=== PATIENT | female | born 1995 | race Hispanic/Latino ===

== ENCOUNTER → 2019-12-28 | Outpatient (CLI) | payer OTHER ==
--- NOTE | 2019-12-28 08:11 | REP ---
INDICATION: RIGHT UPPER QUADRANT PAIN COMPARISON: None. TECHNIQUE: Real time yates scale ultrasound examination using curved array transducer. FINDINGS: Liver demonstrates increased parenchymal echotexture suggesting fatty infiltration without focal hepatic lesion. Pancreas is incompletely evaluated due to interposed bowel gas. The gallbladder is normal and without gallstones, wall thickening, or pericholecystic fluid. No biliary ductal dilatation is appreciated and the common bile duct measures 4.6 mm diameter. Right kidney is normal in reniform shape without hydronephrosis and measures 13.1 x 5.3 x 4.9 cm. No ascites in the visualized right upper quadrant. IMPRESSION: Hepatosteatosis <Electronically signed by Favian Vernon > 12/28/19 0851
[2019-12-28 08:43] LABS: BASO # 0.1 10^3/uL (0.0-0.2); BASO % 1.2 % (0.0-1.0); EOS # 0.3 10^3/uL (0.0-0.5); EOS % 4.9 % (0.0-3.0); HEMATOCRIT 42.3 % (36.0-47.0); HEMOGLOBIN 14.1 g/dl (12.0-15.5); LYMPH # 2.7 10^3/uL (1.5-5.0); LYMPH % 38.6 % (24.0-44.0); MEAN CORPUSCULAR HEMOGLOBIN 30.2 pg (27.0-33.0); MEAN CORPUSCULAR HGB CONC 33.3 g/dl (32.0-36.5); MEAN CORPUSCULAR VOLUME 90.6 fl (80.0-96.0); MONO # 0.6 10^3/uL (0.0-0.8); MONO % 9.3 % (0.0-5.0); NEUTROPHILS # 3.1 10^3/uL (1.5-8.5); NEUTROPHILS % 45.6 % (36.0-66.0); PLATELET COUNT, AUTOMATED 337 10^3/uL (150-450); RED BLOOD COUNT 4.67 10^6/uL (4.00-5.40); WHITE BLOOD COUNT 6.9 10^3/uL (4.0-10.0)
[2019-12-28 08:47] LABS: HEMOGLOBIN A1c 5.2 %
[2019-12-28 08:59] LABS: ALBUMIN 3.7 GM/DL (3.2-5.2); ALT/SGPT 107 U/L (12-78); BILIRUBIN,TOTAL 0.4 MG/DL (0.2-1.0); BLOOD UREA NITROGEN 9 MG/DL (7-18); CALCIUM LEVEL 8.8 MG/DL (8.5-10.1); CARBON DIOXIDE LEVEL 25 MEQ/L (21-32); CHLORIDE LEVEL 106 MEQ/L (98-107); CREATININE FOR GFR 0.57 MG/DL (0.55-1.30); FREE T4 0.93 NG/DL (0.76-1.46); GLOMERULAR FILTRATION RATE > 60.0 (>60); GLUCOSE, FASTING 93 MG/DL (70-100); SODIUM LEVEL 139 MEQ/L (136-145); TOTAL PROTEIN 7.4 GM/DL (6.4-8.2)
[2019-12-28 11:52] LABS: TOTAL 25(OH) VITAMIN D 16.6 NG/ML (30.0-100.0)
== END ==
LOC: M RAD 07:29
PROVIDERS: ATTEND Physician Assistant
DX: R10.11 Right upper quadrant pain (principal); Z13.29 Encounter for screening for other suspected endocrine disorder

== ENCOUNTER 2020-03-18 08:31 | Emergency (ER) | payer OTHER ==
[~2020-03-18] VITALS: Ht 165.1 cm; Wt 110.0 kg
--- OUTSIDE RECORDS SUMMARY | 2020-03-18 08:36 | CCD | Continuity of Care Document ---
Author Jannette Orr DPM Organization Unknown Address [address] [place] [address], [address] [place] [address] Phone [phone] Care Team Providers Care Group Leader Name Role Phone Leatha ADAM, Jess JIANGM [phone] Problems Active Problems Provider Date Pain in limb Jaime Macdonald DPM Onset: 03/08/2020 Ingrowing nail Jaime Macdonald DPM Onset: 03/08/2020 Social History Type Date Description Comments Sex Unknown ETOH Use Rarely consumes alcohol Tobacco Use Start: Unknown Patient has never smoked Allergies, Adverse Reactions, Alerts Active Allergies Reaction Severity Comments Date Coconut 02/19/2020 Promethazine 02/19/2020 Medications Active Medications SIG Qnty Indications Ordering Provide r Date Egdrmgut-Vbmqxowsg-ED 1% Solution apply one drop to base of nail after betadine soaks as directed 10units Jaime Macdonald DPM 03/04/2020 Zoloft Unknown Immunizations Description No Information Available Vital Signs Date Vital Result Comment 03/04/2020 2:03pm Height 64.9 inches 5'4.90" Weight 239.00 lb BP Systolic 118 mmHg BP Diastolic 80 mmHg Heart Rate 106 /min BMI (Body Mass Index) 39.9 kg/m2 02/19/2020 2:25pm Height 64.9 inches 5'4.90" Weight 239.00 lb BP Systolic 118 mmHg BP Diastolic 80 mmHg Heart Rate 106 /min BMI (Body Mass Index) 39.9 kg/m2 Results Description No Information Available Procedures Date Code Description Status 03/04/2020 04000 Excise Nail Bed & Matrix Complet ed Medical Devices Description No Information Available Encounters Type Date Location Provider Dx Diagnosis Office Visit 03/04/2020 1:00p [facility] Jaime Macdonald DPM M79.675 Pain in left toe(s) L60.0 Ingrowing nail Assessments Date Code Description Provider 03/04/2020 M79.675 Pain in left toe(s) Jaime gabriel DPM 03/04/2020 L60.0 Ingrowing nail Jaime Macdonald DPM Plan of Treatment No Information Available Functional Status Description No Information Available Mental Status Description No Information Available Referrals Description No Information Available
--- OUTSIDE RECORDS SUMMARY | 2020-03-18 08:36 | CCD | Continuity of Care Document ---
Author Jannette Orr DPM Organization Unknown Address [address] [place] [address], [facility] [address] [place] [address] Phone [phone] Care Team Providers Care Food Service Hotel Runner Name Role Phone Leatha ADAM, Jess JIANGM [phone] Problems Description No Information Available Social History Type Date Description Comments Sex Unknown ETOH Use Rarely consumes alcohol Tobacco Use Start: Unknown Patient has never smoked Allergies, Adverse Reactions, Alerts Active Allergies Reaction Severity Comments Date Coconut 02/19/2020 Promethazine 02/19/2020 Medications Active Medications SIG Qnty Indications Ordering Provide r Date Dbufcovz-Fplvfhqxh-KX 1% Solution apply one drop to base [...] Available Procedures Date Code Description Status 03/04/2020 08051 Excise Nail Bed & Matrix Complet ed Medical Devices Description No Information Available Encounters Type Date Location Provider Dx Diagnosis Office Visit 03/04/2020 1:00p [place] [facility] Jaime Macdonald DPM M79.675 Pain in left toe(s) L60.0 Ingrowing nail Assessments Date Code Description Provider 03/04/2020 M79.675 Pain in left toe(s) Jaime gabriel DPM 03/04/2020 L60.0 Ingrowing nail Jaime Macdonald DPM Plan of Treatment Future Appointment(s):* 03/11/2020 2:30 pm - Jaime [facility] DPM at [facility] Functional Status Description No Information Available Mental Status Description No Information Available Referrals Description No Information Available
--- OUTSIDE RECORDS SUMMARY | 2020-03-18 08:36 | CCD | Continuity of Care Document ---
Author Author Jannette LEON PA Organization [place] [address] Phone [phone] Care Team Providers Care Poker Prop Player Name Role Phone Jess Zhang D.O. AUTM Problems Active Problems Provider Date Obesity KARI Gallegos Onset: 12/26/2019 Mild recurrent major depression KARI Gallegos Onset: 1 02/24/2019 Social History Type Date Description Comments Sex Unknown ETOH Use Currently consumes alcohol 1x mo nth Tobacco Use Start: Unknown Patient has never smoked Recreational Drug Use Denies Drug Use Exercise Type/Frequency Walks daily Sun Exposure Uses sunscreen Seat Belt/Car Seat Always uses seat belt Allergies, Adverse Reactions, Alerts Active Allergies Reaction Severity Comments Date Coconut 12/14/2019 Promethazine 12/14/2019 Medications Active Medications SIG Qnty Indications Ordering Provide r Date Zoloft 50mg Tablets 3 by mouth every day 270tabs Jess Zhang D.O. Immunizations CPT Code Status Date Vaccine Lot # [id number] Given 12/26/2019 Influenza Virus Vaccine, Quadrivalent, Split, Preservative Free [id number] Vital Signs Date Vital Result Comment 12/26/2019 11:00am BP Systolic 118 mmHg BP Diastolic 80 mmHg Height 64.9 inches 5'4.90" Weight 239.00 lb BMI (Body Mass Index) 39.9 kg/m2 Heart Rate 106 /min Respiratory Rate 16 /min Body Temperature 98.2 F O2 % BldC Oximetry 98 % [place] Body Weight 120 lb Results Description No Information Available Procedures Description No Information Available Medical Devices Description No Information Available Encounters Type Date Location Provider Dx Diagnosis Office Visit 12/26/2019 11:00a [facility] KARI Gallegos F33.0 Major depressive disorder, r ecurrent, mild E66.9 Obesity, unspecified R10.11 Right upper quadrant pain R10.2 Pelvic and perineal pain Z79.899 Other lobsterman (current) dr ug therapy L60.0 Ingrowing nail Z13.29 Encounter for screening for oth suspected endocrine disorder Z23 Encounter for immunization Z68.39 Body mass index [BMI] 39.0-3 9.9, adult Assessments Date Code Description Provider 12/26/2019 F33.0 Major depressive disorder, recur rent, mild KARI Gallegos 12/26/2019 E66.9 Obesity, unspecified KARI Huffman 12/26/2019 R10.11 Right upper quadrant pain KARI Lewis 12/26/2019 R10.2 Pelvic and perineal pain KARI Gallegos 12/26/2019 Z79.899 Other group home (current) drug t herapy KARI Gallegos 12/26/2019 L60.0 Ingrowing nail KARI Gallegos 12/26/2019 Z13.29 Encounter for screen ing for other suspected endocrine disorder KARI Gallegos 12/26/2019 Z23 Encounter for immunization KARI Barragan 12/26/2019 Z68.39 Body mass index [BMI] 39.0-39.9, adult KARI Gallegos Plan of Treatment Future Appointment(s):* 03/27/2020 11:20 am - KARI Gallegos at [facility] Functional Status Description No Information Available Mental Status Description No Information Available Referrals Refer to Reason for Referral Status Appt Date Abel Morales, MS, RD, CDN Jannette has had problems w ith obesity and claims " liver pain" when she is overweight. She is looking for dietary changes and advis[place] [address] [phone] [facility],karen Jannette has c hronic pelvic pain in the anterior pelvis with incontinence and would like pelvic floor PT which has been diagnosed by her previous CLEANING PROFESSIONAL before PCS'ing to [facility]. She also has chronic lowe r back pain and would like separate PT to help evaluate and treat her lower back pain. Created [facility], [address] [place] [address] [phone] Wali Macdonald M.D. right greater toe with infla med and continued ingrown toe nail for the past 4 months but chronic issue for several years. Created [facility] [address] [facility] [address] [place] [address] [phone] Janine Cosby CNM To establish care and routin e PAP smears. Planning to get again in 2020 Created [facility] [address] [address] [phone]
--- OUTSIDE RECORDS SUMMARY | 2020-03-18 08:36 | CCD | Continuity of Care Document ---
Author Author Jannette LEON PA Organization [place] [address] Phone [phone] Care Team Providers Care Material Control Associate Name Role Phone Jess Zhang D.O. AUTM [phone] Problems Active Problems Provider Date Obesity KARI [...] CPT Code Status Date Vaccine Lot # [id number] Given 12/26/2019 Influenza Virus Vaccine, Quadrivalent, Split, Preservative Free [id number] Vital Signs Date Vital Result Comment 12/26/2019 11:00am BP Systolic 118 mmHg BP Diastolic 80 mmHg Height 64.9 inches 5'4.90" Weight 239.00 lb BMI (Body Mass Index) 39.9 kg/m2 Heart Rate 106 /min Respiratory Rate 16 /min Body Temperature 98.2 F O2 % BldC Oximetry 98 % [place] Body Weight 120 lb Results Description No Information Available Procedures Description No Information Available Medical Devices Description No Information Available Encounters Description No Information Available Assessments Date Code Description Provider 12/26/2019 F33.0 Major depressive disorder, recur rent, mild AKRI Gallegos 12/26/2019 E66.9 Obesity, unspecified KARI Huffman 12/26/2019 R10.11 Right upper quadrant pain Avinashsam KARI Magdaleno 12/26/2019 R10.2 Pelvic and perineal pain KARI Gallegos 12/26/2019 Z79.899 Other custodial (current) drug t herapy KARI Gallegos 12/26/2019 L60.0 Ingrowing nail KARI Gallegos 12/26/2019 Z13.29 Encounter for screen ing for other suspected endocrine disorder KARI Gallegos 12/26/2019 Z23 Encounter for immunization KARI Barragan 12/26/2019 Z68.39 Body mass index [BMI] 39.0-39.9, adult KARI Gallegos Plan of Treatment Future Appointment(s):* 03/27/2020 11:20 am - KARI Gallegos at [facility] 12/26/2019 - KARI Gallegos* F33.0 Major depressive disorder, recurrent, mild* Comments:* Please follow up with [facility] to establish a therapist and psychiatrist to help manage your medications.Address: [address] [place], [place] [address]Phone: * E66.9 Obesity, unspecified* Comments:* Referral placed for Abel Morales for dietary advisement. * Referral:* Abel Morales, MS, RD, CDN, Molecular Genetic Pathlgy * R10.11 Right upper quadrant pain* New Xrays:* Ultrasound Abdominal Limited, Ordered: 12/26/19 * Comments:* We will do an Ultrasound to evaluate for Fatty liver verse gallstones. * R10.2 Pelvic and perineal pain* Comments:* Referral placed for Pelvic floor PT and lower back PT with [facility] for evaluation and treatment. * Referral:* [facility],pc, Drying Frame Operator/Clinic/CTR * Janine Cosby CNM, Advanced Practice Transliterator * Z79.899 Other custodial (current) drug therapy * L60.0 Ingrowing nail* Comments:* right greater toe with inflamed and continued ingrown toe nail. Referral placed for Dr. Macdonald for treatment. Issue ongoing for the past 4 months. * Referral:* Wali Macdonald M.D., Film Producer * Z13.29 Encounter for screening for other suspected endocrine disorder* New Labs:* FT4&TSH Panel, Scheduled: 12/26/19 * Hemoglobin A1c, Scheduled: 12/26/19 * CBC With Differential, Scheduled: 12/26/19 * Comprehensive Metabolic Profil, Scheduled: 12/26/19 * Insulin Free & Total Sendout, Scheduled: 12/26/19 * Vitamin D 25-Hydroxy, Scheduled: 12/26/19 * Z23 Encounter for immunization * Z68.39 Body mass index [BMI] 39.0-39.9, adult Functional Status Description No Information Available Mental Status Description No Information Available Referrals Refer to Dr Reason for Referral Status Appt Date Abel Morales, MS, RD, CDN Jannette has had problems w ith obesity and claims " liver pain" when she is overweight. She is looking for dietary changes and advisement [facility] [address] [place] [address] [phone] [facility], Jannette has c hronic pelvic pain in the anterior pelvis with incontinence and would like pelvic floor PT which has been diagnosed by her previous ORACLE R12 DEVELOPER before PCS'ing to [facility]. She also has chronic lowe r back pain and would like separate PT to help evaluate and treat her lower back pain. Created [facility],pc [address] [place] [address] [phone] Wali Macdonald M.D. right greater toe with infla med and continued ingrown toe nail for the past 4 months but chronic issue for several years. Created [facility] [address] [facility] [address] [place] [id number] [phone] Janine Cosby CNM To establish care and routin e PAP smears. Planning to get again in 2020 Created [facility] [address] [address] [phone]
--- OUTSIDE RECORDS SUMMARY | 2020-03-18 08:36 | CCD | Continuity of Care Document ---
Author Author Jannette LEON PA Organization Unknown Address [place] [address] Phone [phone] Care Team Providers Care Bronc Buster Name Role Phone Jess Zhang D.O. AUTM Abel Morales MS AUTM [phone] [facility] AUTM [phone] Wali Macdonald M.D. AUTM [phone] Janine Cosby CNM AUTM [phone] Problems Active Problems Provider Date Obesity KARI [...] SIG Qnty Indications Ordering Provide r Date Vitamin D (Ergocalciferol) 1.25mg (91128 Ut) Capsules 1 capsule weekly for 12 weeks 12caps Jess Bonds D.O. 01/03/2020 Zoloft 50mg Tablets 3 by mouth every day 270tabs Jess Zhang D.O. Immunizations CPT Code Status Date Vaccine Lot # [id number] Given 12/26/2019 Influenza Virus Vaccine, Quadrivalent, Split, Preservative Free [id number] Vital Signs Date Vital Result Comment 12/26/2019 11:00am BP Systolic 118 mmHg BP Diastolic 80 mmHg Height 64.9 inches 5'4.90" Weight 239.00 lb BMI (Body Mass Index) 39.9 kg/m2 Heart Rate 106 /min Respiratory Rate 16 /min Body Temperature 98.2 F O2 % BldC Oximetry 98 % [place] Body Weight 120 lb Results Test Acquired Date Facility Test Result H/L Range Note FT4&TSH Panel 12/28/[address] [id number] [phone] Thyroid Stimulating Hormone 2.220 uIU/ML Normal 0. 358-3.740 Free T4 0.93 ng/dL Normal 0.76-1.46 Hemoglobin A1c 12/28/[address] [address] [phone] Hemoglobin A1c 5.2 % Normal 1 Estimated Average Glucose 103 mg/dL Normal 60-110 CBC With Differential 12/28/[address] [address] [phone] White Blood Count 6.9 10 Normal 4.0-10.0 Red Blood Count 4.67 10 Normal 4.00-5.40 Hemoglobin 14.1 g/dL Normal 12.0-15.5 Hematocrit 42.3 % Normal 36.0-47.0 Mean Corpuscular Volume 90.6 fl Normal 80.0-96.0 Mean Corpuscular Hemoglobin 30.2 pg Normal 27.0-33.0 Mean Corpuscular HGB Conc 33.3 g/dL Normal 32.0-36.5 Red Cell Distribution Width 11.7 % Normal 11.5-14.5 Platelet Count, Automated 337 10 Normal 150-450 Neutrophils % 45.6 % Normal 36.0-66.0 Lymph % 38.6 % Normal 24.0-44.0 [place] % 9.3 % High 0.0-5.0 Eos % 4.9 % High 0.0-3.0 Baso % 1.2 % High 0.0-1.0 Immature Granulocyte % 0.4 % Normal 0-3.0 Nucleated Red Blood Cell % 0.0 % Normal 0-0 Neutrophils # 3.1 10 Normal 1.5-8.5 Lymph # 2.7 10 Normal 1.5-5.0 [place] # 0.6 10 Normal 0.0-0.8 Eos # 0.3 10 Normal 0.0-0.5 Baso # 0.1 10 Normal 0.0-0.2 Comprehensive Metabolic Profil 12/28/[address] [address] [phone] Glucose, Fasting 93 mg/dL Normal 70-100 Blood Urea Nitrogen 9 mg/dL Normal 7-18 Creatinine For GFR 0.57 mg/dL Normal 0.55-1.30 Glomerular Filtration Rate > 60.0 Normal >60 2 Sodium Level 139 mEq/L Normal 136-145 Potassium Serum 4.0 mEq/L Normal 3.5-5.1 Chloride Level 106 mEq/L Normal 98-107 Carbon Dioxide Level 25 mEq/L Normal 21-32 Anion Gap 8 mEq/L Normal 8-16 Calcium Level 8.8 mg/dL Normal 8.5-10.1 Ast/Sgot 36 U/L Normal 7-37 Alt/SGPT 107 U/L High 12-78 Alkaline Phosphatase 57 U/L Normal 45-117 Bilirubin,Total 0.4 mg/dL Normal 0.2-1.0 Total Protein 7.4 GM/DL Normal 6.4-8.2 Albumin 3.7 GM/DL Normal 3.2-5.2 Albumin/Globulin Ratio 1.0 Low 1.2-2.2 Insulin Free & Total Sendout 12/28/[address] [address] [phone] Insulin Free 26 uU/mL High . 3 Insulin Total2 26 uU/mL Normal . 4 Laboratory test finding 12/28/[address] [address] [phone] Total 25(Oh) Vitamin D 16.6 NG/ML Low 30.0-100. 0 1 REFERENCE RANGES: <=5.6% NORMAL 5.7-6.4% SUGGESTS IMPAIRED GLUCOSE META BOLISM/PREDIABETIC >= 6.5% ABNORMAL 2 Units are mL/min/1.73 m2 Chronic Kidney Disease Staging per NKF: Stage I & II GFR >=60 Normal to Mildly Decreased Stage III GFR 30-59 Moderately Decreased Stage IV GFR 15-29 Severely Decreased Stage V GFR <15 Very Little GFR Left ESRD GFR <15 on CREDIT CARD SPECIALIST 3 Reference Range: Pubertal Children and Adults (fasting): 0 - 17 4 Non-Diabetic: In the absenc e of insulin-binding antibodies, the free and total insulin assays are equivalent. However, this assay is intended for use in diabetics with insulin autoantibody present. Measurement is performed on acid-treated samples and, therefore, the sensitivity and absolute values by this method may differ from our direct insulin ICMA. Insulin Dependent Diabetic Patients: Free Insulin levels vary depending on the capacity and affinity of circulating insulin-binding antibodies and the dose of insulin given to the patient. Total insulin levels represent free insulin and antibody bound insulin fractions. This test was developed and its performance characteristics determined by [employer]. It has not been cleared or approved by the Food and Drug Administration. Performed at: [facility] [address] [place] [address] [id number] Bar Waiter/Waitress: Matthew Eid MD, Phone: [phone] Procedures Description No Information Available Medical Devices Description No Information Available Encounters Type Date Location Provider Dx Diagnosis Office Visit 12/26/2019 11:00a Family [facility] KARI Gallegos F33.0 Major depressive disorder, r ecurrent, mild E66.9 Obesity, unspecified R10.11 Right upper quadrant pain R10.2 Pelvic and perineal pain Z79.899 Other termite exterminator helper (current) dr ug therapy L60.0 Ingrowing nail [...] perineal pain KARI Gallegos 12/26/2019 Z79.899 Other termite exterminator helper (current) drug t herapy KARI Gallegos 12/26/2019 L60.0 Ingrowing nail KARI Gallegos 12/26/2019 Z13.29 Encounter for screen ing for other suspected endocrine disorder KARI Gallegos 12/26/2019 Z23 Encounter for immunization KARI Barragan 12/26/2019 Z68.39 Body mass index [BMI] 39.0-39.9, adult KARI Gallegos Plan of Treatment Future Appointment(s):* 03/27/2020 11:20 am - KARI Gallegos at [facility] Functional Status Description No Information Available Mental Status Description No Information Available Referrals Refer to Reason for Referral Status Appt Date Abel Morales, MS, RD, CDN Jannette has had problems w ith obesity and claims " liver pain" when she is overweight. She is looking for dietary changes and advisement [facility] [address] [place] [address] [phone] [facility], Jannette has c hronic pelvic pain in the anterior pelvis with incontinence and would like pelvic floor PT which has been diagnosed by her previous SENIOR BENEFITS MANAGER before PCS'ing to [facility] She also has chronic lowe r back pain and would like separate PT to help evaluate and treat her lower back pain. Sent [facility], [address] [place] [address] [phone] Wali Macdonald M.D. right greater toe with infla med and continued ingrown toe nail for the past 4 months but chronic issue for several years. Sent [facility] [address] [facility] [address] [place] [address] [phone] Janine Cosby CNM To establish care and routin e PAP smears. Planning to get again in 2020 Sent [facility] [address] [address] [phone]
--- OUTSIDE RECORDS SUMMARY | 2020-03-18 08:36 | CCD ---
Author Author [facility] Organization [facility] Address Unknown Phone Unavailable Care Team Providers Care Cellular Equipment Repairer Name Role Phone Elliott FARMER DPM Unavailable Unavailable Elliott FARMER DPM Unavailable Unavailable Elliott FARMER DPM Unavailable Unavailable Elliott FARMER DPM Unavailable Unavailable Elliott FARMER DPM Unavailable Unavailable Elliott FARMER DPM Unavailable Unavailable Elliott FARMER DPM Unavailable Unavailable Elliott FARMER DPM Unavailable Unavailable Elliott FARMER DPM Unavailable Unavailable Elliott FARMER DPM Unavailable Unavailable Elliott FARMER DPM Unavailable Unavailable Elliott FARMER DPM Unavailable Unavailable Elliott FARMER DPM Unavailable Unavailable Elliott FARMER DPM Unavailable Unavailable Elliott FARMER DPM Unavailable Unavailable Elliott FARMER DPM Unavailable Unavailable Elliott FARMER DPM Unavailable Unavailable Elliott FARMER DPM Unavailable Unavailable Elliott FARMER DPM Unavailable Unavailable Elliott FARMER DPM Unavailable Unavailable Elliott FARMER DPM Unavailable Unavailable Elliott FARMER DPM Unavailable Unavailable Elliott FARMER DPM Unavailable Unavailable Elliott FARMER DPM Unavailable Unavailable Elliott FARMER DPM Unavailable Unavailable Elliott FARMER DPM Unavailable Unavailable Elliott FARMER DPM Unavailable Unavailable Elliott FARMER DPM Unavailable Unavailable Elliott FARMER DPM Unavailable Unavailable Elliott FARMER DPM Unavailable Unavailable Diego Link PA Unavailable Unavailable Diego Link PA Unavailable Unavailable Diego Link PA Unavailable Unavailable Diego Link PA Unavailable Unavailable Ingrid'inna, A Joselo PA Unavailable Unavailable O'inna, A Joselo PA Unavailable Unavailable O'inna, A Joselo PA Unavailable Unavailable O'inna, A Joselo PA Unavailable Unavailable O'inna, A Joselo PA Unavailable Unavailable O'inna, A Joselo PA Unavailable Unavailable O'inna, A Joselo PA Unavailable Unavailable O'inna, A Joselo PA Unavailable Unavailable O'inna, A Joselo PA Unavailable Unavailable O'inna, A Joselo PA Unavailable Unavailable O'inna, A Joselo PA Unavailable Unavailable O'inna, A Joselo PA Unavailable Unavailable O'inna, A Joselo PA Unavailable Unavailable O'inna, A Joselo PA Unavailable Unavailable O'inna, A Joselo PA Unavailable Unavailable O'inna, A Joselo PA Unavailable Unavailable O'inna, A Joselo PA Unavailable Unavailable O'inna, A Joselo PA Unavailable Unavailable O'inna, A Joselo PA Unavailable Unavailable O'inna, A Joselo PA Unavailable Unavailable O'inna, A Joselo PA Unavailable Unavailable O'inna, A Joselo PA Unavailable Unavailable O'inna, A Joselo PA Unavailable Unavailable O'inna, A Joselo PA Unavailable Unavailable O'inna, A Joselo PA Unavailable Unavailable O'inna, A Joselo PA Unavailable Unavailable O'inna, A Joselo PA Unavailable Unavailable O'inna, A Joselo PA Unavailable Unavailable Re-disclosure Warning The records that you are about to access may contain information from federally-assisted alcohol or drug abuse programs. If such information is present, then the following federally mandated warning applies: This information has been disclosed to you from records protected by federal confidentiality rules (42 CFR part 2). The federal rules prohibit you from making any further disclosure of this information unless further disclosure is expressly permitted by the written consent of the person to whom it pertains or as otherwise permitted by 42 CFR part 2. A general authorization for the release of medical or other information is NOT sufficient for this purpose. The Federal rules restrict any use of the information to criminally investigate or prosecute any alcohol or drug abuse patient.The records that you are about to access may contain highly sensitive health information, the redisclosure of which is protected by Article 27-F of the [facility] Public Health law. If you continue you may have access to information: Regarding HIV / AIDS; Provided by facilities licensed or operated by the [facility] Office of Mental Health; or Provided by the [facility] Office for People With Developmental Disabilities. If such information is present, then the following [facility] mandated warning applies: This information has been disclosed to you from confidential records which are protected by state law. State law prohibits you from making any further disclosure of this information without the specific written consent of the person to whom it pertains, or as otherwise permitted by law. Any unauthorized further disclosure in violation of state law may result in a fine or nursing home sentence or both. A general authorization for the release of medical or other information is NOT sufficient authorization for further disc losure. Encounters Encounter Providers Location Date Indications Data Source(s ) Office Visit Attender: WESTLEY FARMER [facility] Office 02/15 12:00:00 PM EST [facility] ([facility] Outpatient Attender: Joselo PIERCE [facility] 12/26/2019 10:00:00 AM EST [facility] ([facility]) Immunizations Vaccine Date Status Description Data Source(s) New in 2011. IIV4 12/26/2019 10:50:00 AM EST completed [facility] ([facility]) Medications Medication Brand Name Start Date Product Form Dose Route Admi nistrative Instructions Pharmacy Instructions Status Indications Reaction Description Data Source(s) Hydrocortisone 10 MG/ML / Neomycin 3.5 M G/ML / Polymyxin B 03701 UNT/ML Otic Solution Afjmznjr-Hxzhrawfy-MX 03/04/2020 12:00:00 AM EST active [facility] ([facility] Ergocalciferol 93997 UNT Oral Capsule Vitamin D (Ergocalcife rol) 01/03/2020 12:00:00 AM EST active M [facility] ([facility]) Insurance Providers Payer name Policy type / Coverage type Policy ID Covered constitution party ID Covered constitution party's relationship to peters Policy Peters Plan Information [facility] [id number] O UNAVAILABLE UNAVAILA BLE Problems, Conditions, and Diagnoses Code Display Name Description Problem Type Effective Dates Data Source(s) 852911282 Ingrowing nail Ingrowing nail Problem 03/08/2020 12:00: 00 AM EST [facility] ([facility] [id number] Pain in limb Pain in limb Problem 03/08/2020 12:00:00 A M EST [facility] ([facility] [id number] Mild recurrent major depression Mild recurrent m ajor depression Problem 12/26/2019 12:00:00 AM EST [facility] ([facility]) [id number] Obesity Obesity Problem 12/26/2019 12:00:00 AM ES T [facility] ([facility]) Surgeries/Procedures Procedure Description Date Indications Data Source(s) EXCISION NAIL MATRIX PERMANENT REMOVAL 03/04/2020 12:0 0:00 AM EST [facility] ([facility] Results ID Date Data Source [id number] 12/28/2019 07:41:00 AM EST [facility] ([facility]) Name Value Range Interpretation Code Description Data Yamel rce(s) Supporting Document(s) Calcidiol [Mass/volume] in Serum or Plasma 16.6 ng/mL 30.0- 100.0 Below low normal [facility] ([facility]) ID Date Data Source [id number] 12/28/2019 07:41:00 AM EST [facility] ([facility]) Name Value Range Interpretation Code Description Data Yamel rce(s) Supporting Document(s) Insulin Total2 26 uU/mL Normal (applies to non-numeric r esults) [facility] ([facility]) Non-Diabetic: In the absence of insulin -binding antibodies, the free and total insulin assays [...] developed and its performance characteristics determined by [employer]. It has not been cleared or approved by the Food and Drug Administration. Performed at: [facility] [address] [place] [id number] Skating Rink Manager: Matthew Eid MD, Phone: [phone] Insulin Free 26 uU/mL Above high normal [facility] ([facility]) Reference Range: Pubertal Children and Adults (fasting): 0 - 17 ID Date Data Source [id number] 12/28/2019 07:41:00 AM EST [facility] ([facility]) Name Value Range Interpretation Code Description Data Yamel rce(s) Supporting Document(s) Glucose, Fasting 93 mg/dL 70-100 Normal (applies to non-numeric results) [facility] ([facility]) Creatinine For GFR 0.57 mg/dL 0.55-1.30 Normal (applies to non -numeric results) [facility] ([facility]) Blood Urea Nitrogen 9 mg/dL 7-18 Normal (applies to non-nume navya results) [facility] ([facility]) Sodium Level 139 meq/L 136-145 Normal (applies to non-numeric res ults) [facility]) Potassium Serum 4.0 meq/L 3.5-5.1 Normal (applies to non-numeric results) [facility] ([facility]) Glomerular Filtration Rate Laboratory test result Normal (applies to non- numeric results) [facility] ([facility]) <content>Units are mL/min/1.73 m2</content>
<content></content>
<content>Chronic Kidney Disease Staging per NKF:</content>
<content></content>
<content>Stage I & II GFR >=60 Normal to Mildly Decreased</content>
<content>Stage III GFR 30- 59 Moderately Decreased</content>
<content>Stage IV GFR 15-29 Severely Decreased</content>
<content>Stage V GFR <15 Very Little GFR Left</content>
<content>ESRD GFR <15 on [employer]</content>
<content></content> Anion Gap 8 meq/L 8-16 Normal (applies to non-numeric resul ts) [facility] ([facility]) Chloride Level 106 meq/L 98-107 Normal (applies to non-numeric r esults) [facility] ([facility]) Carbon Dioxide Level 25 meq/L 21-32 Normal (applies to non-num aicha results) [facility] ([facility]) Ast/Sgot 36 U/L 7-37 Normal (applies to non-numeric resul ts) [facility] ([facility]) Alt/SGPT 107 U/L 12-78 Above high normal [facility] ([facility]) Calcium Level 8.8 mg/dL 8.5-10.1 Normal (applies to non-numeric re sults) [facility] ([facility]) Alkaline Phosphatase 57 U/L 45-117 Normal (applies to non-num aicha results) [facility] ([facility]) Bilirubin,Total 0.4 mg/dL 0.2-1.0 Normal (applies to non-numeric results) [facility] ([facility]) Total Protein 7.4 GM/DL 6.4-8.2 Normal (applies to non-numeric re sults) [facility] ([facility]) Albumin 3.7 GM/DL 3.2-5.2 Normal (applies to non-numeric resul ts) [facility] ([facility]) Albumin/Globulin Ratio 1.0 1.2-2.2 Below low normal [facility]) ID Date Data Source [id number] 12/28/2019 07:41:00 AM EST [facility] ([facility]) Name Value Range Interpretation Code Description Data Yamel rce(s) Supporting Document(s) Hemoglobin 14.1 g/dL 12.0-15.5 Normal (applies to non-numeric resul ts) [facility] ([facility]) White Blood Count 6.9 10 4.0-10.0 Normal (applies to non-numeri c results) [facility] ([facility]) Red Blood Count 4.67 10 4.00-5.40 Normal (applies to non-numeric results) [facility]) Hematocrit 42.3 % 36.0-47.0 Normal (applies to non-numeric resul ts) [facility] ([facility]) Mean Corpuscular Volume 90.6 fl 80.0-96.0 Normal ( applies to non-numeric results) [facility] ([facility]) Mean Corpuscular Hemoglobin 30.2 pg 27.0-33.0 Norm al (applies to non-numeric results) [facility] ([facility]) Mean Corpuscular HGB Conc 33.3 g/dL 32.0-36.5 Normal (applies to non-numeric results) [facility] ([facility]) Red Cell Distribution Width 11.7 % 11.5-14.5 Norm al (applies to non-numeric results) [facility] ([facility]) Platelet Count, Automated 337 10 150-450 Normal (applies to non-numeric results) [facility] ([facility]) Neutrophils % 45.6 % 36.0-66.0 Normal (applies to non-numeric re sults) [facility] ([facility]) Finney % 9.3 % 0.0-5.0 Above high normal [facility] ([facility]) Lymph % 38.6 % 24.0-44.0 Normal (applies to non-numeric resul ts) [facility] ([facility]) Eos % 4.9 % 0.0-3.0 Above high normal [facility] ([facility]) Immature Granulocyte % 0.4 % 0-3.0 Normal (applies to non-n umeric results) [facility] ([facility]) Baso % 1.2 % 0.0-1.0 Above high normal [facility] ([facility]) Lymph # 2.7 10 1.5-5.0 Normal (applies to non-numeric resul ts) [facility] ([facility]) Nucleated Red Blood Cell % 0.0 % 0-0 Normal (applies to n on-numeric results) [facility] ([facility]) Neutrophils # 3.1 10 1.5-8.5 Normal (applies to non-numeric re sults) [facility] ([facility]) Finney # 0.6 10 0.0-0.8 Normal (applies to non-numeric resul ts) [facility] ([facility]) Eos # 0.3 10 0.0-0.5 Normal (applies to non-numeric resul ts) [facility] ([facility]) Baso # 0.1 10 0.0-0.2 Normal (applies to non-numeric resul ts) [facility] ([facility]) ID Date Data Source [id number] 12/28/2019 07:41:00 AM EST [facility] ([facility]) Name Value Range Interpretation Code Description Data Yamel rce(s) Supporting Document(s) Hemoglobin A1c 5.2 % Normal (applies to non-numeric r esults) [facility] ([facility]) <content>REFERENCE RANGES:</content><br/ ><content></content>
<content><=5.6% NORMAL</content>
<content>5.7-6.4% SUGGESTS IMPAIRED GLUCOSE METABOLISM/PREDIABETIC</content>
<content>>= 6.5% ABNORMAL</content>
<content></content> Estimated Average Glucose 103 mg/dL 60-110 Normal (applies to non-numeric results) [facility] ([facility]) ID Date Data Source [id number] 12/28/2019 07:41:00 AM EST [facility] ([facility]) Name Value Range Interpretation Code Description Data Yamel rce(s) Supporting Document(s) Thyroid Stimulating Hormone 2.220 uIU/ML 0.358-3.740 Norm al (applies to non- numeric results) [facility] ([facility]) Free T4 0.93 ng/dL 0.76-1.46 Normal (applies to non-numeric resul ts) [facility] ([facility]) Procedure Vital Signs ID Date Data Source [id number] Name Value Range Interpretation Code Description Data Source(s) Body mass index (BMI) [Ratio] 39.9 kg/m2 39.9 k g/m2 [facility] Heart rate 106 /min 106 /min [facility] ([facility] Diastolic blood pressure 80 mm[Hg] 80 mm[Hg] [facility] ([facility] Systolic blood pressure 118 mm[Hg] 118 mm[Hg] M [facility] ([facility] Body weight 239.00 [lb_av] 239.00 [lb_av] [facility] ([facility] Body height 64.9 [in_i] 64.9 [in_i] [facility] ([facility] 5'4.90" Body mass index (BMI) [Ratio] 39.9 kg/m2 39.9 k g/m2 [facility] ([facility] Heart rate 106 /min 106 /min [facility] ([facility] Diastolic blood pressure 80 mm[Hg] 80 mm[Hg] [facility] ([facility] Systolic blood pressure 118 mm[Hg] 118 mm[Hg] [facility] ([facility] Body weight 239.00 [lb_av] 239.00 [lb_av] [facility] ([facility] Body height 64.9 [in_i] 64.9 [in_i] [facility] ([facility] 5'4.90" [place] body weight 120 [lb_av] 120 [lb_av] [facility] ([facility]) Oxygen saturation in Arterial blood by Pulse oximetry 98 % 98 % [facility] ([facility]) Body temperature 98.2 [degF] 98.2 [degF] [facility] ([facility]) Respiratory rate 16 /min 16 /min [facility] ( [facility]) Heart rate 106 /min 106 /min [facility] ([facility]) Body mass index (BMI) [Ratio] 39.9 kg/m2 39.9 k g/m2 [facility] ([facility]) Body weight 239.00 [lb_av] 239.00 [lb_av] [facility] ([facility]) Body height 64.9 [in_i] 64.9 [in_i] RACHEL ([facility]) 5'4.90" Diastolic blood pressure 80 mm[Hg] 80 mm[Hg] [facility] ([facility]) Systolic blood pressure 118 mm[Hg] 118 mm[Hg] Loli SEGOVIA ([facility])
[2020-03-18] MEDS ORDERED: SERT50TA29 (08:40)
--- OUTSIDE RECORDS SUMMARY | 2020-03-18 09:39 | CCD ---
Author Author [facility] Organization [facility] Address Unknown Phone Unavailable Care Team Providers Care Frame Gate Mortiser Operator Name Role Phone Elliott FARMER DPM Unavailable Unavailable Elliott FARMER DPM Unavailable Unavailable Elliott FARMER DPM Unavailable Unavailable Elliott FARMER DPM Unavailable Unavailable Elliott FARMER DPM Unavailable Unavailable Elloitt FARMER DPM Unavailable Unavailable Elliott FARMER DPM [...] Unavailable Unavailable Diego Link PA Unavailable Unavailable Ingrid'Diego keith PA Unavailable Unavailable O'inna, A Joselo PA [...] is protected by Article 27-F of the [facility] Public Health law. If you continue you may have access to information: Regarding HIV / AIDS; Provided by facilities licensed or operated by the [facility] Office of Mental Health; or Provided by the [facility] Office for People With Developmental Disabilities. If such information is present, then the following [facility] mandated warning applies: This information has been [...] law may result in a fine or [place] health [place] sentence or both. A general authorization for the release of medical or other information is NOT sufficient authorization for further disc losure. Encounters Encounter Providers Location Date Indications Data Source(s ) Office Visit Attender: WESTLEY FARMER [facility] Office 02/15 12:00:00 PM EST [facility] ([facility] Outpatient Attender: Joselo PIERCE [facility] 12/26/2019 10:00:00 AM EST [facility] ([facility] Immunizations Vaccine Date Status Description Data Source(s) New in 2011. IIV4 12/26/2019 10:50:00 AM EST completed [facility] ([facility]) Medications Medication Brand Name Start Date Product Form Dose Route Admi nistrative Instructions Pharmacy Instructions Status Indications Reaction Description Data Source(s) Hydrocortisone 10 MG/ML / Neomycin 3.5 M G/ML / Polymyxin B 29455 UNT/ML Otic Solution [id number]-Wxyfouxrr-YI 03/04/2020 12:00:00 AM EST active [facility] ([facility] Ergocalciferol 11784 UNT Oral Capsule Vitamin D (Ergocalcife rol) 01/03/2020 12:00:00 AM EST active [facility] ([facility] Insurance Providers Payer name Policy type / Coverage type Policy ID Covered republican ID Covered republican's relationship to peters Policy Peters Plan Information [facility] [id number] O UNAVAILABLE UNAVAILA BLE Problems, Conditions, and Diagnoses Code Display Name Description Problem Type Effective Dates Data Source(s) 605403367 Ingrowing nail Ingrowing nail Problem 03/08/2020 12:00: 00 AM EST [facility] ([facility] [id number] Pain in limb Pain in limb Problem 03/08/2020 12:00:00 A M EST [facility] ([facility] [id number] Mild recurrent major depression Mild recurrent m ajor depression Problem 12/26/2019 12:00:00 AM EST [facility] ([facility]) [id number] Obesity Obesity Problem 12/26/2019 12:00:00 AM ES T [facility] ([facility]) Surgeries/Procedures Procedure Description Date Indications Data Source(s) EXCISION NAIL MATRIX PERMANENT REMOVAL 03/04/2020 12:0 0:00 AM EST [facility] ([facility] Results ID Date Data Source [id number] 12/28/2019 07:41:00 AM EST [facility] ([facility]) Name Value Range Interpretation Code Description Data Yamel rce(s) Supporting Document(s) Calcidiol [Mass/volume] in Serum or Plasma 16.6 ng/mL 30.0- 100.0 Below low normal [facility] ([facility]) ID Date Data Source [id number] 12/28/2019 07:41:00 AM EST [facility] ([facility]) Name Value Range Interpretation Code Description Data Yamel rce(s) Supporting Document(s) Insulin Total2 26 uU/mL Normal (applies to non-numeric r esults) [facility] ([facility]) Non-Diabetic: In the absence of insulin -binding [...] developed and its performance characteristics determined by [employer]. It has not been cleared or approved by the Food and Drug Administration. Performed at: [facility] [address] [place] [address] [phone] Carton Marker Machine: Matthew Eid MD, Phone: [phone] Insulin Free 26 uU/mL Above high normal [facility] ([facility]) Reference Range: Pubertal Children and Adults (fasting): 0 - 17 ID Date Data Source [id number] 12/28/2019 07:41:00 AM EST [facility] Name Value Range Interpretation Code Description Data Yamel rce(s) Supporting Document(s) Glucose, Fasting 93 mg/dL 70-100 Normal (applies to non-numeric results) [facility] ([facility]) Creatinine For GFR 0.57 mg/dL 0.55-1.30 Normal (applies to non -numeric results) [facility] ([facility]) Blood Urea Nitrogen 9 mg/dL 7-18 Normal (applies to non-nume navya results) [facility] ([facility]) Sodium Level 139 meq/L 136-145 Normal (applies to non-numeric res ults) [facility] ([facility]) Potassium Serum 4.0 meq/L 3.5-5.1 Normal (applies to non-numeric results) [facility] ([facility]) Glomerular Filtration Rate Laboratory test result Normal (applies to non- numeric results) [facility] ([facility]) <content>Units are mL/min/1.73 m2</content>
<content></content>
<content>Chronic Kidney Disease Staging per [facility]:</content>
<content></content>
<content>Stage I & II GFR >=60 Normal to Mildly Decreased</content>
<content>Stage III GFR 30- 59 Moderately Decreased</content>
<content>Stage IV GFR 15-29 Severely Decreased</content>
<content>Stage V GFR <15 Very Little GFR Left</content>
<content>ESRD GFR <15 on PRODUCT DEVELOPMENT CONSULTANT</content>
<content></content> Anion Gap 8 meq/L 8-16 Normal (applies to non-numeric resul ts) [facility] ([facility] Chloride Level 106 meq/L 98-107 Normal (applies to non-numeric r esults) [facility] ([facility] Carbon Dioxide Level 25 meq/L 21-32 Normal (applies to non-num aicha results) [facility] ([facility]) Ast/Sgot 36 U/L 7-37 Normal (applies to non-numeric resul ts) [facility] ([facility]) Alt/SGPT 107 U/L 12-78 Above high normal [facility] ([facility]) Calcium Level 8.8 mg/dL 8.5-10.1 Normal (applies to non-numeric re sults) [facility] ([facility]) Alkaline Phosphatase 57 U/L 45-117 Normal (applies to non-num aicha results) [facility] ([facility]) Bilirubin,Total 0.4 mg/dL 0.2-1.0 Normal (applies to non-numeric results) [facility] ([facility] Total Protein 7.4 GM/DL 6.4-8.2 Normal (applies to non-numeric re sults) [facility] ([facility]) Albumin 3.7 GM/DL 3.2-5.2 Normal (applies to non-numeric resul ts) [facility] ([facility]) Albumin/Globulin Ratio 1.0 1.2-2.2 Below low normal [facility] ([facility]) ID Date Data Source [id number] 12/28/2019 07:41:00 AM EST [facility] ([facility]) Name Value Range Interpretation Code Description Data Yamel rce(s) Supporting Document(s) Hemoglobin 14.1 g/dL 12.0-15.5 Normal (applies to non-numeric resul ts) [facility] ([facility] White Blood Count 6.9 10 4.0-10.0 Normal (applies to non-numeri c results) [facility] Red Blood Count 4.67 10 4.00-5.40 Normal (applies to non-numeric results) [facility] Hematocrit 42.3 % 36.0-47.0 Normal (applies to non-numeric resul ts) [facility] ([facility] Mean Corpuscular Volume 90.6 fl 80.0-96.0 Normal ( applies to non-numeric results) [facility] ([facility] Mean Corpuscular Hemoglobin 30.2 pg 27.0-33.0 Norm al (applies to non-numeric results) [facility] ([facility]) Mean Corpuscular HGB Conc 33.3 g/dL 32.0-36.5 Normal (applies to non-numeric results) [facility] ([facility] Red Cell Distribution Width 11.7 % 11.5-14.5 Norm al (applies to non-numeric results) [facility] ([facility]) Platelet Count, Automated 337 10 150-450 Normal (applies to non-numeric results) [facility] ([facility]) Neutrophils % 45.6 % 36.0-66.0 Normal (applies to non-numeric re sults) [facility] ([facility]) Cass % 9.3 % 0.0-5.0 Above high normal [facility] ([facility] Lymph % 38.6 % 24.0-44.0 Normal (applies to non-numeric resul ts) [facility] ([facility]) Eos % 4.9 % 0.0-3.0 Above high normal [facility] ([facility]) Immature Granulocyte % 0.4 % 0-3.0 Normal (applies to non-n umeric results) [facility] ([facility]) Baso % 1.2 % 0.0-1.0 Above high normal [facility] ([facility] Lymph # 2.7 10 1.5-5.0 Normal (applies to non-numeric resul ts) [facility] ([facility]) Nucleated Red Blood Cell % 0.0 % 0-0 Normal (applies to n on-numeric results) [facility] ([facility] Neutrophils # 3.1 10 1.5-8.5 Normal (applies to non-numeric re sults) [facility] ([facility]) Cass # 0.6 10 0.0-0.8 Normal (applies to non-numeric resul ts) [facility] ([facility] Eos # 0.3 10 0.0-0.5 Normal (applies to non-numeric resul ts) [facility] ([facility] Baso # 0.1 10 0.0-0.2 Normal (applies to non-numeric resul ts) [facility] ID Date Data Source [id number] 12/28/2019 07:41:00 AM EST [facility] ([facility]) Name Value Range Interpretation Code Description Data Yamel rce(s) Supporting Document(s) Hemoglobin A1c 5.2 % Normal (applies to non-numeric r esults) [facility] ([facility]) <content>REFERENCE RANGES:</content><br/ ><content></content>
<content><=5.6% NORMAL</content>
<content>5.7-6.4% SUGGESTS IMPAIRED GLUCOSE METABOLISM/PREDIABETIC</content>
<content>>= 6.5% ABNORMAL</content>
<content></content> Estimated Average Glucose 103 mg/dL 60-110 Normal (applies to non-numeric results) [facility] ([facility]) ID Date Data Source [id number] 12/28/2019 07:41:00 AM EST [facility] ([facility]) Name Value Range Interpretation Code Description Data Yamel rce(s) Supporting Document(s) Thyroid Stimulating Hormone 2.220 uIU/ML 0.358-3.740 Norm al (applies to non- numeric results) [facility] ([facility] Free T4 0.93 ng/dL 0.76-1.46 Normal (applies to non-numeric resul ts) [facility] ([facility]) Procedure Vital Signs ID Date Data Source [id number] Name Value Range Interpretation Code Description Data Source(s) Body mass index (BMI) [Ratio] 39.9 kg/m2 39.9 k g/m2 [facility] Heart rate 106 /min 106 /min [facility] ([facility] Diastolic blood pressure 80 mm[Hg] 80 mm[Hg] [facility] Systolic blood pressure 118 mm[Hg] 118 [...] blood pressure 80 mm[Hg] 80 mm[Hg] [facility] Systolic blood pressure 118 mm[Hg] 118 mm[Hg] [facility] Body weight 239.00 [lb_av] 239.00 [lb_av] [facility] ([facility] Body height 64.9 [in_i] 64.9 [in_i] [facility] ([facility] 5'4.90" [place] body weight 120 [lb_av] 120 [lb_av] [facility] ([facility] Oxygen saturation in Arterial blood by Pulse oximetry 98 % 98 % [facility] ([facility] Body temperature 98.2 [degF] 98.2 [degF] [facility] ([facility] Respiratory rate 16 /min 16 /min [facility] ( [facility] Heart rate 106 /min 106 /min [facility] ([facility] Body mass index (BMI) [Ratio] 39.9 kg/m2 39.9 k g/m2 [facility] ([facility] Body weight 239.00 [lb_av] 239.00 [lb_av] [facility] ([facility] Body height 64.9 [in_i] 64.9 [in_i] [facility] ([facility]) 5'4.90" Diastolic blood pressure 80 mm[Hg] 80 mm[Hg] [facility] ([facility] Systolic blood pressure 118 mm[Hg] 118 mm[Hg] Loli SEGOVIA ([facility])
[2020-03-18 09:41] LABS: BASO # 0.1 10^3/uL (0.0-0.2); BASO % 0.9 % (0.0-1.0); EOS # 0.2 10^3/uL (0.0-0.5); EOS % 2.6 % (0.0-3.0); HEMATOCRIT 41.8 % (36.0-47.0); HEMOGLOBIN 13.7 g/dl (12.0-15.5); LYMPH # 2.5 10^3/uL (1.5-5.0); LYMPH % 36.4 % (24.0-44.0); MEAN CORPUSCULAR HEMOGLOBIN 29.6 pg (27.0-33.0); MEAN CORPUSCULAR HGB CONC 32.8 g/dl (32.0-36.5); MEAN CORPUSCULAR VOLUME 90.3 fl (80.0-96.0); MONO # 0.5 10^3/uL (0.0-0.8); MONO % 7.2 % (0.0-5.0); NEUTROPHILS # 3.6 10^3/uL (1.5-8.5); NEUTROPHILS % 52.5 % (36.0-66.0); PLATELET COUNT, AUTOMATED 342 10^3/uL (150-450); RED BLOOD COUNT 4.63 10^6/uL (4.00-5.40); WHITE BLOOD COUNT 6.9 10^3/uL (4.0-10.0)
[2020-03-18] MEDS ORDERED: KETOROLAC 30 MG/ML 1ML VIAL IV ONE (09:45)
--- NOTE | 2020-03-18 10:01 | REP ---
INDICATION: chest discomfort COMPARISON: None. TECHNIQUE: PA and lateral. FINDINGS: The mediastinum and cardiac silhouette are normal. The lung ramirez are clear and without acute consolidation, effusion, or pneumothorax. The skeletal structures are intact and normal. IMPRESSION: No acute cardiopulmonary process. <Electronically signed by Favian Vernon > 03/18/20 [id number]
[2020-03-18 10:20] LABS: ALBUMIN 3.7 GM/DL (3.2-5.2); ALT/SGPT 96 U/L (12-78); BILIRUBIN,DIRECT < 0.1 MG/DL (0.0-0.2); BILIRUBIN,TOTAL 0.4 MG/DL (0.2-1.0); FREE T4 0.93 NG/DL (0.76-1.46); LIPASE 150 U/L (73-393); TOTAL PROTEIN 7.5 GM/DL (6.4-8.2)
[2020-03-18 10:31] LABS: INR 0.96
[2020-03-18 10:32] LABS: PARTIAL THROMBOPLASTIN TIME 29.1 SECONDS (24.2-38.5)
[2020-03-18 10:34] LABS: D-DIMER QUANT 383.78 ng/ml (<500)
[2020-03-18 11:04] LABS: CK-MB VALUE MASS < 1.0 NG/ML (<3.6); CPK CREATINE PHOSPHOKINASE 71 U/L (26-192); MB/CK RELATIVE INDEX 1.41 (< OR =4); TROPONIN I < 0.02 NG/ML (< 0.10)
[2020-03-18] MEDS ORDERED: PROT1TAB2 PO (11:20)
[2020-03-18 11:25] VITALS: BP 107/59
--- NOTE | 2020-03-18 20:40 | ECGEPIP ---
[facility] - ED Test Date: 2020-03-18 Pat Name: CAYETANO PAULA Department: Room: - Gender: Female Bryologist: marcelle : 1995 Requested By: KIRSTEN Dozier PA-C Order Number: [id number] Reading MD: Shree Sun Measurements Intervals [place] Rate: 75 P: 22 NE: 140 QRS: 47 QRSD: 114 T: -5 QT: 370 QTc: 415 Interpretive Statements SINUS RHYTHM MODERATE INTRAVENTRICULAR CONDUCTION DELAY NONSPECIFIC T-WAVE ABNORMALITY NO PRIORS FOR COMPARISON Electronically Signed on 03-18-2020 20:40:27 EST by Shree Sun
== END 2020-03-18 11:40 | disposition home or self-care (01) ==
LOC: M ED 08:31
DX: K21.9 Gastro-esophageal reflux disease without esophagitis (principal); Z79.899 Other long term (current) drug therapy; Z91.018 Allergy to other foods; Z88.8 Allergy status to other drugs, medicaments and biological substances
CPT/HCPCS: 71046; 80047; 80076; 82550; 82553; 83690; 84439; 84443; 84484; 84702; 85025; 85379; 85610; 85730; 93005; 96374; 99284; J1885

== ENCOUNTER → 2020-07-22 | Outpatient (CLI) | payer OTHER ==
[~2020-07-22] MED LIST: PROT1TAB2 PO; SERT50TA29
[2020-07-22 11:01] LABS: ALBUMIN 3.8 GM/DL (3.2-5.2); ALT/SGPT 121 U/L (12-78); BILIRUBIN,TOTAL 0.3 MG/DL (0.2-1.0); BLOOD UREA NITROGEN 7 MG/DL (7-18); CALCIUM LEVEL 9.3 MG/DL (8.5-10.1); CARBON DIOXIDE LEVEL 28 MEQ/L (21-32); CHLORIDE LEVEL 106 MEQ/L (98-107); CHOLESTEROL LEVEL 189 MG/DL (<200); CREATININE FOR GFR 0.55 MG/DL (0.55-1.30); GLOMERULAR FILTRATION RATE > 60.0 (>60); GLUCOSE, FASTING 88 MG/DL (70-100); HDL CHOLESTEROL 70 MG/DL (>40); LDL CHOLESTEROL 100 MG/DL (<100); NON-HDL-C 119 MG/DL; POTASSIUM SERUM 4.1 MEQ/L (3.5-5.1); SODIUM LEVEL 139 MEQ/L (136-145); TOTAL PROTEIN 7.7 GM/DL (6.4-8.2); TRIGLYCERIDES LEVEL 96 MG/DL (<150)
[2020-07-22 12:13] LABS: HEMOGLOBIN A1c 5.3 %
[2020-07-22 12:15] LABS: TESTOSTERONE 55 NG/DL (14-76)
== END ==
LOC: M LAB 09:18
PROVIDERS: ATTEND Nurse Practitioner Family
DX: E28.2 Polycystic ovarian syndrome (principal); E88.81 Metabolic syndrome and other insulin resistance

== ENCOUNTER → 2020-07-22 | Outpatient (CLI) | payer OTHER ==
[2020-07-22 10:28] LABS: BASO # 0.1 10^3/uL (0.0-0.2); BASO % 1.2 % (0.0-1.0); EOS # 0.7 10^3/uL (0.0-0.5); EOS % 8.1 % (0.0-3.0); HEMATOCRIT 43.3 % (36.0-47.0); HEMOGLOBIN 14.2 g/dl (12.0-15.5); LYMPH # 3.2 10^3/uL (1.5-5.0); LYMPH % 38.2 % (24.0-44.0); MEAN CORPUSCULAR HGB CONC 32.8 g/dl (32.0-36.5); MEAN CORPUSCULAR VOLUME 91.4 fl (80.0-96.0); MONO # 0.6 10^3/uL (0.0-0.8); MONO % 6.5 % (2.0-8.0); NEUTROPHILS # 3.8 10^3/uL (1.5-8.5); NEUTROPHILS % 45.6 % (36.0-66.0); PLATELET COUNT, AUTOMATED 343 10^3/uL (150-450); RED BLOOD COUNT 4.74 10^6/uL (4.00-5.40); WHITE BLOOD COUNT 8.4 10^3/uL (4.0-10.0)
[2020-07-22 10:58] LABS: ALBUMIN 3.9 GM/DL (3.2-5.2); ALT/SGPT 120 U/L (12-78); BILIRUBIN,TOTAL 0.4 MG/DL (0.2-1.0); BLOOD UREA NITROGEN 8 MG/DL (7-18); CALCIUM LEVEL 9.3 MG/DL (8.5-10.1); CARBON DIOXIDE LEVEL 27 MEQ/L (21-32); CHLORIDE LEVEL 106 MEQ/L (98-107); CREATININE FOR GFR 0.59 MG/DL (0.55-1.30); GLOMERULAR FILTRATION RATE > 60.0 (>60); GLUCOSE, FASTING 88 MG/DL (70-100); POTASSIUM SERUM 4.2 MEQ/L (3.5-5.1); SODIUM LEVEL 139 MEQ/L (136-145); TOTAL PROTEIN 7.8 GM/DL (6.4-8.2)
[2020-07-22 12:06] LABS: HEMOGLOBIN A1c 5.3 %
== END ==
LOC: M LAB 09:13
PROVIDERS: ATTEND Physician Assistant
DX: E28.2 Polycystic ovarian syndrome (principal)